=== PATIENT | female | born 1955 | race Caucasian/White ===

== ENCOUNTER 2021-07-16 13:16 | Inpatient (IN) | payer OTHER ==
[~2021-07-16] VITALS: Ht 165.1 cm; Wt 70.0 kg
--- NOTE | 2021-07-16 13:25 | NUR ---
TO CT SCAN
--- NOTE | 2021-07-16 13:45 | NUR ---
upon return to room from ct (development writer accompanied) patient with worsening wob, breath sounds quite ronchorous/rate to 40. Also with rhythm change (st elevation onin lead I). Erp to bedside-plan to intubate/repeat ecg. hemodialysis charge nurse made aware. Repeat fsbs 179
[2021-07-16 14:04] LABS: BASOPHILS % (AUTO) 0 % (0-1); EOSINOPHILS % (AUTO) 0 % (1-7); LYMPHOCYTES % (AUTO) 7 % (22-44); MEAN CORPUSCULAR HGB CONC 30.5 g/dL (32.4-35.8); MEAN PLATELET VOLUME 7.6 fL (7.4-10.4); MONOCYTES % (AUTO) 6 % (2-9); NEUTROPHILS % (AUTO) 87 % (42-75); PLATELET COUNT 322 x10^3/uL (130-400); RED BLOOD COUNT 4.06 x10^6/uL (3.82-5.3); RED CELL DISTRIBUTION WIDTH 16.8 % (9.6-15.2)
[2021-07-16] MEDS ORDERED: OMNIPAQUE 350 MG/ML, 100ML BOTTLE ONE (14:08)
--- NOTE | 2021-07-16 14:12 | NUR ---
INTUBATED BY ERP VIA 20MG OF ETOMIDATE/120 SUCC WITH 8.0 (23 AT THE TEET), COLOR CHANGE AND BILATERAL BREATH SOUNDS AUDIBLE OJ/TEMP SENSING SIMON/RESTRAINTS PLACED
--- NOTE | 2021-07-16 14:54 | NUR ---
CXR AT BEDSIDE FOR POST INTUBATION/OJ PLACEMENT
--- NOTE | 2021-07-16 14:57 | NUR ---
LAB AT BEDSIDE FOR REDRAW OF ALL LABS/ABG/BLOOD CULTURES
[2021-07-16] MEDS ORDERED: LABETALOL 5MG/ML, 20ML IVPush PRN (15:00)
[2021-07-16] MEDS ORDERED: AZITHROMYCIN 500 MG in SODIUM CHLORIDE 0.9% 250 ML IV ONE (15:00)
[2021-07-16] MEDS ORDERED: ETOMIDATE 20 MG/10 ML IVPush ONE ×2 (15:00→16:00)
[2021-07-16] MEDS ORDERED: SUCCINYLCHOLINE 20 MG/ML, 10ML IVPush ONE ×2 (15:00→16:00)
[2021-07-16] MEDS ORDERED: morphine SULFATE 10 MG/ML, 1ML IVPush PRN (15:00)
[2021-07-16] MEDS ORDERED: LORazepam 2 MG/ML, 1ML IVPush PRN (15:00)
[2021-07-16] MEDS ORDERED: OXYcodone IR 5MG TABLET PO PRN (15:00)
[2021-07-16] MEDS ORDERED: ENOXAPARIN 40 MG/0.4 ML SQ SCH (15:00)
[2021-07-16] MEDS ORDERED: ONDANSETRON 2MG/ML, 2ML IVPush PRN (15:00)
[2021-07-16] MEDS ORDERED: BISACODYL 10 MG SUPP PR PRN (15:00)
[2021-07-16] MEDS ORDERED: ACETAMINOPHEN 325 MG TABLET PO PRN (15:00)
[2021-07-16] MEDS ORDERED: ENALAPRILAT 1.25 MG/ML, 2ML IVPush PRN (15:00)
[2021-07-16] MEDS ORDERED: CEFTRIAXONE 1,000 MG in DEXTROSE 5% 50 ML IVPB ONE (15:00)
[2021-07-16] MEDS ORDERED: POLYETHYLENE GLYCOL 17 GM PACKET PO PRN (15:00)
--- NOTE | 2021-07-16 15:00 | NUR ---
ETT SPUTUM TRAP SAMPLE OBTAINED SENT
[2021-07-16] MEDS: PROPOFOL 100 ML IV PRN (15:04)
[2021-07-16] MEDS: CEFTRIAXONE 2 GM in DEXTROSE 5% 50 ML IVPB SCH (15:19)
--- NOTE | 2021-07-16 15:30 | NUR ---
REPORT RECIEVED FROM MIRELLA MILLAN. LAB CALLED AND SAID "I THINK THE ABG WAS TAKEN FROM THE VENOUS SIDE". LAB TO REDRAW ABG. ABX ADM AFTER BLOOD CULTURES DRAWN X2
--- NOTE | 2021-07-16 15:30 | NUR ---
RT MADE AWARE OF CXR FINDINGS OF ETT TUBE MALIGNMENT REPORT TO RAYMUNDO MILLAN
[2021-07-16] MEDS: LACTATED RINGERS 1,000 ML IV SCH (15:43)
[2021-07-16 15:51] LABS: CREATINE KINASE, TOTAL 1365 U/L (26-192); INTERNATIONAL NORMALIZED RATIO 1.19 (0.93-1.1); PROTHROMBIN TIME 12.6 Seconds (9.6-11.5)
[2021-07-16 16:01] LABS: ALANINE AMINOTRANSFERASE 115 U/L (12-78); ALBUMIN 2.6 g/dL (3.4-5.0); ANION GAP 16 mmol/L (5-15); CALCIUM 8.7 mg/dL (8.5-10.1); CHLORIDE 108 mmol/L (98-107); CREATININE 1.31 mg/dL (0.55-1.02); IRON LEVEL 25 mcg/dL (50-170)
[2021-07-16 16:04] LABS: % IRON SATURATION 6 % (20-55); ALKALINE PHOSPHATASE 142 U/L (45-117); BILIRUBIN,TOTAL 0.3 mg/dL (0.2-1.0); TOTAL IRON BINDING CAPACITY 452 mcg/dL (250-450); TOTAL PROTEIN 6.6 g/dL (6.4-8.2)
[2021-07-16] MEDS: METRONIDAZOLE PMX 500MG/100ML 100 ML IV SCH (16:06)
[2021-07-16] MEDS ORDERED: FENTANYL PF 1,000 MCG in SODIUM CHLORIDE 0.9% 80 ML IV ONE (16:30)
[2021-07-16] MEDS ORDERED: SODIUM CHLORIDE 0.9% 1,000ML IVBOLUS ONE (16:30)
[2021-07-16] MEDS ORDERED: ACETAMINOPHEN 120 MG SUPP PR STA (16:32)
[2021-07-16] MEDS ORDERED: ACETAMINOPHEN 650 MG SUPP ONE (16:35)
[2021-07-16] MEDS ORDERED: ACETAMINOPHEN 325 MG SUPP ONE (16:35)
--- NOTE | 2021-07-16 16:40 | NUR ---
CARDS BEDSIDE. MD NOTIFIED OF FEVER. SEE MAR FOR INTERVENTIONS
[2021-07-16] MEDS ORDERED: HEPARIN 5,000 UNITS/ML, 1ML IV ONE ×2 (17:00→17:30)
[2021-07-16] MEDS ORDERED: HEPARIN 5,000 UNITS/ML, 1ML IV PRN (17:00)
[2021-07-16] MEDS ORDERED: HEPARIN 25,000 UNITS/250ML PMX 250 ML IV PRN ×2 (17:00→23:00)
--- NOTE | 2021-07-16 17:11 | NUR ---
PT IS NOT ON A WEIGHTED GURNEY SPOKE WITH PHARAMCY IN REGARDS TO ESTIMATED PT WEIGHT. PER PHARMACY IT WILL BE OK TO START HEPARIN AND WE CAN ADJUST DOSING AND RATE LATER WHEN AN ACCURATE WEIGHT IS OBTAINED
[2021-07-16] MEDS ORDERED: HEPARIN 25,000 UNITS/250ML PMX 250 ML ONE (17:16)
[2021-07-16] MEDS ORDERED: HEPARIN 5,000 UNITS/ML, 1ML ONE (17:16)
[2021-07-16] MEDS: HEPARIN 25,000 UNITS/250ML PMX 250 ML IV PRN (17:23)
--- NOTE | 2021-07-16 17:36 | NUR ---
PT RESTING IN [facility], AT BEDSIDE AND EDUCATED ON POC
--- NOTE | 2021-07-16 18:16 | NUR ---
DIRECTOR PROSPECT: HUGO CARTAGENA [phone]
[2021-07-16] MEDS ORDERED: LIDOCAINE-MPF 1%, 2ML ENDO PRN (19:00)
[2021-07-16] MEDS ORDERED: ACETAMINOPHEN 120 MG SUPP PR ONE (19:00)
[2021-07-16] MEDS ORDERED: PROPOFOL 100 ML IV PRN (19:00)
[2021-07-16] MEDS ORDERED: PHARMACY MAY ADJ FOR RENAL FX MC SCH (19:00)
[2021-07-16] MEDS ORDERED: FENTANYL PF 100 MCG/2ML IVPush PRN (19:00)
[2021-07-16] MEDS ORDERED: GLUCAGON 1 MG IM PRN (19:00)
[2021-07-16] MEDS ORDERED: DEXTROSE 50%, 50ML SYRINGE IVPush PRN (19:00)
[2021-07-16] MEDS ORDERED: DEXTROSE 4 GM TAB.CHEW PO PRN (19:00)
[2021-07-16] MEDS ORDERED: PROPOFOL 10 MG/ML, 100ML IV ONE (19:16)
[2021-07-16] MEDS ORDERED: ETOMIDATE 20 MG/10 ML ONE (19:16)
[2021-07-16] MEDS ORDERED: SUCCINYLCHOLINE 20 MG/ML, 10ML ONE (19:16)
[2021-07-16] MEDS ORDERED: PROPOFOL 100 ML IV ONE (19:27)
[2021-07-16 19:33] VITALS: BP 146/82
--- NOTE | 2021-07-16 19:51 | NUR ---
CALLED MD TO NOTIFY OF PT TEMP. AWAITING TO HEAR BACK
[2021-07-16] MEDS: SODIUM CHLORIDE FLUSH 10ML SYR IVF SCH (21:00)
[2021-07-16] MEDS: FAMOTIDINE 20 MG/2 ML IVPush SCH (21:06)
[2021-07-17] MEDS: METRONIDAZOLE PMX 500MG/100ML 100 ML IV SCH ×3 (01:31→16:50)
[2021-07-17 02:12] LABS: MICROSCOPIC INDICATED
[2021-07-17] MEDS: PROPOFOL 100 ML IV PRN ×2 (03:47→17:20)
[2021-07-17 03:58] LABS: BASOPHILS % (AUTO) 0 % (0-1); EOSINOPHILS % (AUTO) 0 % (1-7); LYMPHOCYTES % (AUTO) 11 % (22-44); MEAN CORPUSCULAR HEMOGLOBIN 23.8 pg (27.0-34.8); MEAN CORPUSCULAR HGB CONC 31.5 g/dL (32.4-35.8); MEAN PLATELET VOLUME 7.8 fL (7.4-10.4); MONOCYTES % (AUTO) 5 % (2-9); NEUTROPHILS % (AUTO) 84 % (42-75); PLATELET COUNT 293 x10^3/uL (130-400); RED BLOOD COUNT 4.13 x10^6/uL (3.82-5.3); RED CELL DISTRIBUTION WIDTH 16.8 % (9.6-15.2)
[2021-07-17 04:06] LABS: ALANINE AMINOTRANSFERASE 273 U/L (12-78); ALBUMIN 2.3 g/dL (3.4-5.0); ANION GAP 10 mmol/L (5-15); CHLORIDE 111 mmol/L (98-107); CREATININE 1.04 mg/dL (0.55-1.02)
[2021-07-17 04:16] LABS: ALKALINE PHOSPHATASE 115 U/L (45-117); BILIRUBIN,TOTAL 0.3 mg/dL (0.2-1.0); TOTAL PROTEIN 5.6 g/dL (6.4-8.2)
[2021-07-17] MEDS: LACTATED RINGERS 1,000 ML IV SCH ×2 (05:00→20:40)
[2021-07-17] MEDS ORDERED: ASPIRIN 325 MG TABLET EC PO SCH (06:00)
[2021-07-17] MEDS: FERROUS SULFATE 220 MG/5 ML ORAL SOL PO SCH ×2 (08:49→20:39)
[2021-07-17] MEDS: FAMOTIDINE 20 MG/2 ML IVPush SCH ×2 (08:49→20:39)
[2021-07-17] MEDS: SENNA/DOCUSATE TABLET PO SCH (08:49)
[2021-07-17] MEDS: ASPIRIN 325 MG TABLET PO SCH (09:34)
[2021-07-17] MEDS: SODIUM CHLORIDE FLUSH 10ML SYR IVF SCH ×2 (09:34→20:40)
--- NOTE | 2021-07-17 12:51 | NUR ---
Tube Feed: Promote : 50 ml/hr off propofol, 60 ml/hr on propofol Addendum: 07/17/21 at [address] Amended: Links added.
[2021-07-17] MEDS ORDERED: GADOTERATE 7.5 MMOL/15ML SYR ONE (13:11)
[2021-07-17] MEDS: CEFTRIAXONE 2 GM in DEXTROSE 5% 50 ML IVPB SCH (16:16)
[2021-07-17] MEDS ORDERED: LIDOCAINE 2%, 20ML ONE (17:02)
[2021-07-17] MEDS ORDERED: THROMBIN 20,000 UNIT VIAL TP ONE ×2 (22:35→22:54)
[2021-07-17] MEDS ORDERED: BUPIVACAINE/PF 0.5% ONE (22:35)
[2021-07-17] MEDS ORDERED: PROTAMINE SULFATE 10 MG/ML, 5ML ONE (22:35)
[2021-07-17] MEDS ORDERED: HEPARIN 1,000 UNITS/ML, 30ML ONE (22:35)
[2021-07-17] MEDS ORDERED: HEPARIN 1,000 UNITS/ML, 30ML IVPush ONE (22:53)
[2021-07-17] MEDS ORDERED: FENTANYL PF 100 MCG/2ML ONE (23:01)
[2021-07-17] MEDS ORDERED: PHENYLEPHRINE 10 MG/ML ONE (23:13)
[2021-07-17] MEDS ORDERED: MIDAZOLAM 1 MG/ML, 2ML ONE (23:19)
[2021-07-18] MEDS: METRONIDAZOLE PMX 500MG/100ML 100 ML IV SCH ×4 (00:50→23:11)
[2021-07-18 04:43] LABS: BASOPHILS % (AUTO) 0 % (0-1); EOSINOPHILS % (AUTO) 0 % (1-7); LYMPHOCYTES % (AUTO) 5 % (22-44); MEAN CORPUSCULAR HEMOGLOBIN 24.3 pg (27.0-34.8); MEAN CORPUSCULAR HGB CONC 31.7 g/dL (32.4-35.8); MEAN PLATELET VOLUME 8.4 fL (7.4-10.4); MONOCYTES % (AUTO) 4 % (2-9); NEUTROPHILS % (AUTO) 91 % (42-75); PLATELET COUNT 244 x10^3/uL (130-400); RED BLOOD COUNT 3.78 x10^6/uL (3.82-5.3); RED CELL DISTRIBUTION WIDTH 17.1 % (9.6-15.2)
[2021-07-18 04:50] LABS: ALBUMIN 2.1 g/dL (3.4-5.0); ANION GAP 7 mmol/L (5-15); CALCIUM 8.1 mg/dL (8.5-10.1); CHLORIDE 110 mmol/L (98-107)
[2021-07-18 05:16] LABS: ALANINE AMINOTRANSFERASE 707 U/L (12-78); ALKALINE PHOSPHATASE 102 U/L (45-117); BILIRUBIN,TOTAL 0.6 mg/dL (0.2-1.0); CREATINE KINASE, TOTAL 12118 U/L (26-192); CREATININE 0.79 mg/dL (0.55-1.02); TOTAL PROTEIN 5.5 g/dL (6.4-8.2)
[2021-07-18] MEDS: LACTATED RINGERS 1,000 ML IV SCH ×2 (06:27→20:00)
[2021-07-18] MEDS: ASPIRIN 325 MG TABLET PO SCH (06:27)
[2021-07-18] MEDS: SENNA/DOCUSATE TABLET PO SCH (09:00)
[2021-07-18] MEDS: FAMOTIDINE 20 MG/2 ML IVPush SCH ×2 (09:48→20:09)
[2021-07-18] MEDS: FERROUS SULFATE 220 MG/5 ML ORAL SOL PO SCH ×2 (09:48→16:21)
[2021-07-18] MEDS: SODIUM CHLORIDE FLUSH 10ML SYR IVF SCH ×2 (09:49→20:09)
[2021-07-18] MEDS: HEPARIN 5,000 UNITS/ML, 1ML IV PRN ×2 (10:14→17:39)
--- NOTE | 2021-07-18 13:32 | NUR ---
Tube Feeds: Trickle feeds only with Vital HP . Reassess 07/19 Addendum: 07/18/21 at [address] Amended: Links added.
[2021-07-18] MEDS: CEFTRIAXONE 2 GM in DEXTROSE 5% 50 ML IVPB SCH (15:06)
[2021-07-18] MEDS ORDERED: VANCOMYCIN PER PHARMACY MC PRN (15:30)
[2021-07-18] MEDS ORDERED: VANCOMYCIN 1,700 MG in SODIUM CHLORIDE 0.9% 250 ML IV ONE (16:00)
[2021-07-18] MEDS ORDERED: PHARMACOKINETIC MONITORING MC PRN (16:30)
[2021-07-18] MEDS ORDERED: PHARMACOKINETIC CONSULTATION MC ONE (16:30)
[2021-07-19] MEDS: HEPARIN 5,000 UNITS/ML, 1ML IV PRN ×2 (00:30→08:38)
[2021-07-19] MEDS: HEPARIN 25,000 UNITS/250ML PMX 250 ML IV PRN (04:00)
[2021-07-19] MEDS: PROPOFOL 100 ML IV PRN ×2 (04:30→07:11)
[2021-07-19 04:35] LABS: BASOPHILS % (AUTO) 0 % (0-1); EOSINOPHILS % (AUTO) 0 % (1-7); LYMPHOCYTES % (AUTO) 8 % (22-44); MEAN CORPUSCULAR HEMOGLOBIN 24.2 pg (27.0-34.8); MEAN PLATELET VOLUME 8.2 fL (7.4-10.4); MONOCYTES % (AUTO) 5 % (2-9); NEUTROPHILS % (AUTO) 87 % (42-75); PLATELET COUNT 258 x10^3/uL (130-400); RED BLOOD COUNT 3.63 x10^6/uL (3.82-5.3); RED CELL DISTRIBUTION WIDTH 16.4 % (9.6-15.2)
[2021-07-19 05:02] LABS: CALCIUM 8.2 mg/dL (8.5-10.1); CHLORIDE 112 mmol/L (98-107)
[2021-07-19 05:36] LABS: ANION GAP 8 mmol/L (5-15); CREATINE KINASE, TOTAL 7790 U/L (26-192); CREATININE 0.66 mg/dL (0.55-1.02); TRIGLYCERIDES 73 mg/dL (50-200)
[2021-07-19] MEDS: ASPIRIN 325 MG TABLET PO SCH (06:00)
[2021-07-19] MEDS: LACTATED RINGERS 1,000 ML IV SCH (06:00)
[2021-07-19] MEDS: METRONIDAZOLE PMX 500MG/100ML 100 ML IV SCH (06:24)
[2021-07-19] MEDS ORDERED: POTASSIUM CHLORIDE 20 MEQ PACKET PO SCH (08:00)
[2021-07-19] MEDS: SODIUM CHLORIDE FLUSH 10ML SYR IVF SCH (08:38)
[2021-07-19] MEDS: SENNA/DOCUSATE TABLET PO SCH (08:38)
[2021-07-19] MEDS: FERROUS SULFATE 220 MG/5 ML ORAL SOL PO SCH (08:38)
[2021-07-19] MEDS: FAMOTIDINE 20 MG/2 ML IVPush SCH (08:38)
[2021-07-19] MEDS ORDERED: VANCOMYCIN 1,300 MG in SODIUM CHLORIDE 0.9% 250 ML IV SCH (10:00)
[2021-07-19] MEDS ORDERED: LORazepam 2 MG/ML, 1ML IV ONE (15:00)
[2021-07-19] MEDS ORDERED: MORPHINE SULFATE 4 MG/ML, 1ML IV ONE (15:00)
[2021-07-19] MEDS ORDERED: MORPHINE SULFATE 4 MG/ML, 1ML IVPush PRN (15:00)
[2021-07-19] MEDS ORDERED: LORazepam 2 MG/ML, 1ML IVPush PRN (15:00)
[2021-07-19] MEDS ORDERED: ATROPINE OPHTH SOLN 1%, 5ML PO PRN (15:00)
[2021-07-19] MEDS ORDERED: ONDANSETRON 2MG/ML, 2ML IVPush PRN (15:00)
== END 2021-07-19 15:25 | DRG 252 ==
LOC: ED 15:06 → EDIP 16:00 → CSU 20:39 → CCU 07-18 08:28
PROVIDERS: ADMIT Internal Medicine; ATTEND Internal Medicine
PROC: 0BH17EZ Insertion of Endotracheal Airway into Trachea, Via Natural or Artificial Opening (ICD-10-PCS; 2021-07-16)
PROC: 5A1945Z Respiratory Ventilation, 24-96 Consecutive Hours (ICD-10-PCS; 2021-07-16)
PROC: 03C70ZZ Extirpation of Matter from Right Brachial Artery, Open Approach (ICD-10-PCS; principal; 2021-07-18)
PROC: 03C90ZZ Extirpation of Matter from Right Ulnar Artery, Open Approach (ICD-10-PCS; 2021-07-18)
PROC: 03CB0ZZ Extirpation of Matter from Right Radial Artery, Open Approach (ICD-10-PCS; 2021-07-18)
DX: I74.2 Embolism and thrombosis of arteries of the upper extremities (principal); I63.49 Cerebral infarction due to embolism of other cerebral artery; I21.4 Non-ST elevation (NSTEMI) myocardial infarction; N17.0 Acute kidney failure with tubular necrosis; K72.00 Acute and subacute hepatic failure without coma; J96.00 Acute respiratory failure, unspecified whether with hypoxia or hypercapnia; J15.211 Pneumonia due to Methicillin susceptible Staphylococcus aureus; J69.0 Pneumonitis due to inhalation of food and vomit; G93.41 Metabolic encephalopathy; B17.9 Acute viral hepatitis, unspecified; M62.82 Rhabdomyolysis; Z99.11 Dependence on respirator [ventilator] status; R57.9 Shock, unspecified; G81.94 Hemiplegia, unspecified affecting left nondominant side; I44.2 Atrioventricular block, complete; I42.9 Cardiomyopathy, unspecified; Z51.5 Encounter for palliative care; I99.8 Other disorder of circulatory system; I65.01 Occlusion and stenosis of right vertebral artery; E86.0 Dehydration; I10 Essential (primary) hypertension; H51.8 Other specified disorders of binocular movement; I34.0 Nonrheumatic mitral (valve) insufficiency; D50.9 Iron deficiency anemia, unspecified; Z79.01 Long term (current) use of anticoagulants; Z86.73 Personal history of transient ischemic attack (TIA), and cerebral infarction without residual deficits; Z87.891 Personal history of nicotine dependence
CPT/HCPCS: 31500; 33210; 36415; 36600; 96361; 96374; 96375; 99291; C8929; J3490; S0020; 70450; 70496; 70498; 70553; 71045; 80047; 80048; 80053; 81001; 82550; 82728; 82803; 82962; 83540; 83550; 83605; 83735; 84100; 84443; 84478; 84484; 85025; 85520; 85610; 85730; 87040; 87070; 87077; 87081; 87186; 87205; 87635; 93005; 94002; 94003; C1894; G0378; J0696; J1644; J2250; J2704; J2720; J3010; J3370; Q9967; A9575; C1757; J0330; J2060; J2270; J2370; J7030; J7050; J7120